=== PATIENT | male | born 1955 | race Two or more races ===

== ENCOUNTER 2020-08-17 10:00 | Inpatient (IN) | payer OTHER ==
[~2020-08-17] VITALS: Ht 180.3 cm; Wt 104.3 kg
[2020-08-17] MEDS ORDERED: TOPROL XL50 M1 PO (10:57)
[2020-08-17] MEDS ORDERED: FENOFIBRA PO (10:57)
[2020-08-17] MEDS ORDERED: ATACAND32 MG PO (10:58)
[2020-08-17] MEDS ORDERED: SIMVASTATIN80 MG PO (10:59)
[2020-08-17] MEDS ORDERED: TIROSINT25 MCG PO (10:59)
[2020-08-24] MEDS ORDERED: CANDESARTAN-HC1 EAC2 (09:23)
[2020-08-24] MEDS ORDERED: CLONIDINE HCL0.1 MG (09:23)
[2020-08-24] MEDS ORDERED: FENOFIBRATE145 MG (09:23)
[2020-08-24] MEDS ORDERED: METOPROLOL TART50 MG (09:23)
[2020-08-25] MEDS ORDERED: ULTRACET PO (08:31)
[2020-08-25] MEDS ORDERED: RECTICARE30 GM TOP (08:32)
== END 2020-08-25 09:06 | disposition home or self-care (01) | DRG 395 ==
LOC: ADM 10:00 → EDSTATUS 10:00 → O/R 08-24 05:35 → SURG 08-24 05:35 → SURH 08-24 10:00 → SURG 08-24 10:15 → SURH 08-24 11:15 → SURG 08-25 09:06
PROVIDERS: ADMIT Surgery; ATTEND Surgery
PROC: 0DBP8ZX Excision of Rectum, Via Natural or Artificial Opening Endoscopic, Diagnostic (ICD-10-PCS; principal; 2020-08-24 11:15)
DX: D12.8 Benign neoplasm of rectum (principal)

== ENCOUNTER 2022-01-18 09:45 | Inpatient (IN) | payer OTHER ==
[~2022-01-18] VITALS: Ht 152.4 cm; Wt 99.8 kg
[~2022-01-18 09:45] MED LIST: ATACAND32 MG PO; CANDESARTAN-HC1 EAC2; CLONIDINE HCL0.1 MG; FENOFIBRA PO; FENOFIBRATE145 MG; METOPROLOL TART50 MG; RECTICARE30 GM TOP; SIMVASTATIN80 MG PO; TIROSINT25 MCG PO; TOPROL XL50 M1 PO; ULTRACET PO
[2022-01-24] MEDS ORDERED: EZETIMIBE10 MG (08:56)
[2022-01-24] MEDS ORDERED: ALLERGY RELIEF10 MG (08:56)
[2022-01-24] MEDS ORDERED: CANDESARTAN-HC1 EAC2 (08:56)
[2022-01-24] MEDS ORDERED: METOPROLOL TART50 MG (08:56)
== END 2022-01-26 07:56 | disposition home or self-care (01) | DRG 395 ==
LOC: SURH 01-24 05:30 → O/R 01-24 05:30 → EDBD 01-24 09:45 → SURH 01-24 09:45
PROVIDERS: ADMIT Surgery; ATTEND Surgery
PROC: 0D5P8ZZ Destruction of Rectum, Via Natural or Artificial Opening Endoscopic (ICD-10-PCS; principal; 2022-01-24 16:45)
DX: D12.8 Benign neoplasm of rectum (principal); E03.8 Other specified hypothyroidism; I10 Essential (primary) hypertension